=== PATIENT | male | born 1965 | race Caucasian/White ===

== ENCOUNTER 2021-03-25 08:50 | Emergency (ER) | payer BC ==
[~2021-03-25] VITALS: Ht 182 cm; Wt 99.7 kg
[2021-03-25 09:13] LABS: BILIRUBIN,URINE NEGATIVE (NEGATIVE); CLARITY,URINE CLEAR; COLOR,URINE YELLOW; GLUCOSE, URINE (UA) NEGATIVE (NEGATIVE); KETONES,URINE TRACE (NEGATIVE); LEUKOCYTE ESTERASE ,URINE NEGATIVE (NEGATIVE); NITRITE,URINE NEGATIVE (NEGATIVE); PH,URINE 5.5 (5-9); PROTEIN,URINE 1+ (NEGATIVE)
--- NOTE | 2021-03-25 09:13 | ED Neurological Problem ---
General Chief Complaint: Neurological Problems Stated Complaint: SEIZURE Source: patient, EMS Exam Limitations: no limitations History of Present Illness Date Seen by Provider: Mar 25, 2021 Time Seen by Provider: 08:47 Initial Comments Here with report of seizure activity. Apparently he was staying at the hotel. Significant other reported to EMS that he woke up and had a blank stare and then laid back and had tonic-clonic seizure for about 5 minutes. She called the hotel front desk clerk who called EMS. On EMS arrival, patient was confused and noted to have blood in his mouth and a little bit on the pillow and seemed to be postictal. No report of previous seizure. No recent injury. He is here for family day event as his daughter goes to [employer]. He denies pain, nausea, vomiting or weakness. Admits to drinking alcohol but it has been several weeks. He denies tobacco or drugs. Denies any other significant medical problems. His mentation is improving with time per EMS and also on our evaluation. Timing/Duration: 1/2 hour Severity: moderate Associated Symptoms: confusion; No fever/chills, No nausea/vomiting; seizures; No slurred speech Allergies and Home Medications Allergies Coded Allergies: No Known Drug Allergies (Unverified , 03/25/21) Patient Home Medication List Home Medication List Reviewed: Yes Review of Systems Review of Systems Constitutional: see HPI; No chills, No fever Ears, Nose, Mouth, Throat: denies epistaxis; mouth pain (Bite to the left side of the tongue with bleeding controlled) Respiratory: No cough, No short of breath Cardiovascular: No chest pain, No edema Gastrointestinal: No abdominal pain, No nausea, No vomiting Genitourinary: no symptoms reported, other (Incontinence of urine noted) Musculoskeletal: No back pain, No joint pain, No muscle pain Skin: No lesions All Other Systems Reviewed Negative Unless Noted: Yes Past Vvmfhkv-Atwuum-Ujgcuo Hx Patient Social History Tobacco Use?: No Substance use?: No Alcohol Use?: No Pt feels they are or have been: No Immunizations Up To Date First/Initial COVID19 Vaccinat: 2020 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 oz. kg; BMI Method: General Appearance: WD/WN, no apparent distress HEENT: PERRL/EOMI, TMs normal, other (Small abrasion/bite bin to left side of the tongue without active bleeding.) Neck: full range of motion, supple Respiratory: lungs clear, normal breath sounds, no respiratory distress, no accessory muscle use Cardiovascular: regular rate, rhythm, no murmur Gastrointestinal: non tender, soft Back: normal inspection, no CVA tenderness, no vertebral tenderness Extremities: non-tender, normal inspection Neurologic/Psychiatric: alert, normal mood/affect, other (Occasionally confused answers but improving with time) Crainal Nerves: normal hearing, normal speech, PERRL Motor/Sensory: no motor deficit, no sensory deficit, no pronator drift Skin: normal color, warm/dry Progress/Results/Core Measures Results/Orders Lab Results Laboratory Tests Test 03/25/21 08:50 03/25/21 09:01 03/25/21 10:12 Range/Units White Blood Count 14.0 H 4.3-11.0 10^3/uL Red Blood Count 4.67 4.30-5.52 10^6/uL Hemoglobin 14.5 13.3-17.7 g/dL Hematocrit 44 40-54 % Mean Corpuscular Volume 95 80-99 fL Mean Corpuscular Hemoglobin 31 25-34 pg Mean Corpuscular Hemoglobin Concent 33 32-36 g/dL Red Cell Distribution Width 12.8 10.0-14.5 % Platelet Count 104 L 130-400 10^3/uL Mean Platelet Volume 10.9 9.0-12.2 fL Immature Granulocyte % (Auto) 2 % Neutrophils (%) (Auto) 85 H 42-75 % Lymphocytes (%) (Auto) 6 L 12-44 % Monocytes (%) (Auto) 6 0-12 % Eosinophils (%) (Auto) 1 0-10 % Basophils (%) (Auto) 0 0-10 % Neutrophils # (Auto) 11.9 H 1.8-7.8 10^3/uL Lymphocytes # (Auto) 0.8 L 1.0-4.0 10^3/uL Monocytes # (Auto) 0.8 0.0-1.0 10^3/uL Eosinophils # (Auto) 0.2 0.0-0.3 10^3/uL Basophils # (Auto) 0.1 0.0-0.1 10^3/uL Immature Granulocyte # (Auto) 0.3 H 0.0-0.1 10^3/uL Neutrophils % (Manual) 80 % Lymphocytes % (Manual) 7 % Monocytes % (Manual) 4 % Eosinophils % (Manual) 4 % Basophils % (Manual) 0 % Band Neutrophils 5 % Percent Immature Platelet Fraction 4.4 0.0-7.6 % Blood Morphology Comment NORMAL Sodium Level 135 135-145 MMOL/L Potassium Level 4.0 3.6-5.0 MMOL/L Chloride Level 104 98-107 MMOL/L Carbon Dioxide Level 14 L 21-32 MMOL/L Anion Gap 17 H 5-14 MMOL/L Blood Urea Nitrogen 8 7-18 MG/DL Creatinine 0.79 0.60-1.30 MG/DL Estimat Glomerular Filtration Rate 103 BUN/Creatinine Ratio 10 Glucose Level 195 H 70-105 MG/DL Calcium Level 8.8 8.5-10.1 MG/DL Corrected Calcium 9.0 8.5-10.1 MG/DL Magnesium Level 2.0 1.6-2.4 MG/DL Total Bilirubin 2.9 H 0.1-1.0 MG/DL Aspartate Amino Transf (AST/SGOT) 71 H 5-34 U/L Alanine Aminotransferase (ALT/SGPT) 31 0-55 U/L Alkaline Phosphatase 127 40-136 U/L Total Protein 7.5 6.4-8.2 GM/DL Albumin 3.8 3.2-4.5 GM/DL Free Thyroxine 1.03 0.70-1.48 NG/DL TSH [place] Testing 6.46 H 0.35-4.94 UIU/ML Serum Alcohol < 10 <10 MG/DL Urine Color YELLOW Urine Clarity CLEAR Urine pH 5.5 5-9 Urine Specific [place] >=1.030 1.016-1.022 Urine Protein 1+ H NEGATIVE Urine Glucose (UA) NEGATIVE NEGATIVE Urine Ketones TRACE H NEGATIVE Urine Nitrite NEGATIVE NEGATIVE Urine Bilirubin NEGATIVE NEGATIVE Urine Urobilinogen 0.2 < = 1.0 MG/DL Urine Leukocyte Esterase NEGATIVE NEGATIVE Urine RBC (Auto) 1+ H NEGATIVE Urine RBC RARE /HPF Urine WBC NONE /HPF Urine Squamous Epithelial Cells RARE /HPF Urine Crystals NONE /LPF Urine Bacteria NEGATIVE /HPF Urine Casts NONE /LPF Urine Mucus NEGATIVE /LPF Urine Culture Indicated NO Urine Opiates Screen NEGATIVE NEGATIVE Urine Oxycodone Screen NEGATIVE NEGATIVE Urine Methadone Screen NEGATIVE NEGATIVE Urine Propoxyphene Screen NEGATIVE NEGATIVE Urine Barbiturates Screen NEGATIVE NEGATIVE Ur Tricyclic Antidepressants Screen NEGATIVE NEGATIVE Urine Phencyclidine Screen NEGATIVE NEGATIVE Urine Amphetamines Screen NEGATIVE NEGATIVE Urine Methamphetamines Screen NEGATIVE NEGATIVE Urine Benzodiazepines Screen NEGATIVE NEGATIVE Urine Cocaine Screen NEGATIVE NEGATIVE Urine Cannabinoids Screen NEGATIVE NEGATIVE SARS-CoV-2 RNA (RT-PCR) Not Detected Not Detecte My Orders Orders - LUCY NO MD Ct Head Wo (03/25/21 09:04) Cbc With Automated Diff (03/25/21 09:04) Comprehensive Metabolic Panel (03/25/21 09:04) Magnesium (03/25/21 09:04) Thyroid Analyzer (03/25/21 09:04) Ua Culture If Indicated (03/25/21 09:04) Manual Differential (03/25/21 08:50) Free T4 (Free Thyroxine) (03/25/21 08:50) Lorazepam Injection (Ativan Injection) (03/25/21 09:51) Levetiracetam Injection (Keppra Injectio (03/25/21 09:53) Ns (Ivpb) (Sodium Chloride 0.9% Ivpb Bag (03/25/21 09:54) Levetiracetam Injection (Keppra Injectio (03/25/21 10:00) Ns (Ivpb) (Sodium Chloride 0.9% Ivpb Bag (03/25/21 09:56) Covid 19 Inhouse Test (03/25/21 10:10) Alcohol (03/25/21 10:10) Drug Screen Stat (Urine) (03/25/21 10:10) Levetiracetam Injection (Keppra Injectio (03/25/21 11:04) Lactated Ringers (Lr 1000 Ml Iv Solution (03/25/21 12:00) Lactated Ringers (Lr 1000 Ml Iv Solution (03/25/21 11:58) Medications Given in ED Current Medications Medications Dose Ordered Sig/Cara Route Start Time Stop Time Status Last Admin Dose Admin Lactated Ringer's 1,000 ml @ 0 mls/hr Q0M ONCE IV 03/25/21 12:00 03/25/21 12:01 DC 03/25/21 12:06 0 MLS/HR Levetiracetam 500 mg/Sodium Chloride 105 ml @ 210 mls/hr ONCE ONCE IV 03/25/21 10:00 03/25/21 10:29 DC 03/25/21 09:58 210 MLS/HR Lorazepam 2 mg STK-MED ONCE .ROUTE 03/25/21 09:51 03/25/21 09:53 DC 03/25/21 09:59 1 MG Vital Signs/I&O 03/25/21 09:03 Temp 36.4 Pulse 105 Resp 18 B/P (MAP) 159/87 (111) Pulse Ox 95 Progress Progress Note : Progress Note Seen and evaluated. IV by EMS. Labs and CT head ordered. We will continue normal saline initiated by EMS until complete. Monitor patient. 1000: Patient had seizure in the emergency department that initially appeared brief but then persisted. Ativan 1 mg IV given as well as Keppra 500 mg IV initiated. Given the repeat seizures in the short period of time, patient may need to be admitted to a center with neurology capability. Patient and family are from [place]. is here now. I did discuss with her more at length regarding his alcoholism. She states that he is an alcoholic and has not drank since October. She does not believe that he is closet drinking and states that he has been actually doing very well. No recent injuries or other drugs noted or reported. We did discuss transfer and patient will need to go to the Center with neurology as discussed above. She would prefer [facility] in [facility] as that is where she and he typically go. She is calling family to [facility] that that is their preference and we will initiate proceedings for transfer. Monitor patient. Seizure precautions have been initiated. 1120: I did speak with the transfer doctor and plant utility person neurologist Dr. Neri. We did review the case. The neurologist is concerned that this is alcohol withdrawal seizures given patient's history and slightly elevated liver enzymes. This may be the case. Patient denies this but given the new onset seizures and history of alcoholism, this may certainly be the case. CT of the head is negative. Labs reviewed. TSH is slightly elevated but T4 is normal. Otherwise labs looked typical for post seizure. Neurologist recommended increasing loading dose of Keppra to 1000 mg so we have added another 500 mg IV dose. He did get a Joaquin catheter. They are recommending monitoring him and seeing if he improves over time. If he is doing better then consideration for outpatient evaluation and continuing Keppra 500 mg p.o. twice daily pending neurology consult. I did discuss all of this with the patient and family. There is a significant lack of beds in the region. We will try another facility if needed. The [facility] system as well [facility]'s system do not currently have beds. Monitor patient. 1355: I discussed the case with the stroke neurologist on-call at [facility] Dr. Hsu. We discussed current findings. This does not appear to be stroke related but I did want to discuss that as a potential in the differential. Unlikely given presentation. He has no focal neurological deficits. We did walk the patient and his balance is steady. Does complain of muscle pain in the legs and upper back as well as a mild headache. He is drinking without difficulty. Overall this appears to be seizure of unknown origin, less likely alcohol withdrawal seizure in my opinion as the patient and family denying alcohol since October. May be related to long-term sequela of alcohol abuse though. Given that seizure is unknown, we will go ahead and initiate Keppra twice daily and have him follow-up with his primary care doctor tomorrow as well as neurology in the [place] area. This was discussed at length with patient and family who agree. He has not had repeat seizures since initiation of the Keppra earlier in the ED course. feels confident that she can work through the care needs at home and is comforted since he is able to walk on his own accord. Discharged home with return precautions. Patient and family verbalized understanding instructions and agreement with plan Diagnostic Imaging Diagonstic Imaging: CT Plain Films/CT/US/NM/MRI: head Comments [facility]. [place], [place] NAME: TEDDY LANDEROS MED REC#: [id number] PT STATUS: REG ER : 1965 PHYSICIAN: LUCY NO MD ADMIT DATE: 03/25/21/ER Draft Date of Exam:03/25/21 CT HEAD WO EXAMINATION: CT head without contrast. TECHNIQUE: Multiple contiguous axial images were obtained through the brain without the use of intravenous contrast. All CT scans use one or more of the following dose optimizing techniques: automated exposure control, MA and/or KvP adjustment based on patient size and exam type or iterative reconstruction. HISTORY: Seizure COMPARISON: None available. FINDINGS: The wiggins-white matter differentiation is normal. No mass effect or midline shift. The ventricles are normal in size and configuration. Basilar cisterns are patent. There are no intra- or extra-axial fluid collections. There is no intracranial hemorrhage. The orbits are normal. Paranasal sinuses are normal. Mastoid air cells are clear. No soft tissue abnormality is seen. No osseus lesions or fractures are seen. IMPRESSION: 1. No acute intracranial abnormality. Dictated on workstation # [id number] Dict: 03/25/21928 Trans: 03/25/2142 [facility] [id number] Interpreted by: JACQUES EASON MD Electronically signed by: Departure Impression Primary Impression: New onset seizure Disposition: 01 HOME, SELF-CARE Condition: Stable Departure-Patient Inst. Decision time for Depature: 13:57 Referrals: NO,LOCAL PHYSICIAN (PCP/Family) Primary Care Physician Patient Instructions: Seizures, Adult (DC) Add. Discharge Instructions: All discharge instructions reviewed with patient and/or family. Voiced understanding. Do not operate heavy machinery. Do not put yourself in situation that may be dangerous if you were to have a seizure including no driving, no swimming or soaking in a bathtub by yourself, and no climbing to heights. Follow-up with your doctor tomorrow. Call office for appointment. personal support worker prescription on the way out of town and start that tonight. Drink plenty of fluids and eat a normal diet. Return for seizures, weakness, breathing problems or other concerns as needed. Scripts Levetiracetam (Levetiracetam) 500 Mg Tablet 500 MG PO BID for 30 Days, #60 TAB 0 Refills Prov: LUCY NO MD 03/25/21 LUCY NO MD Mar 25, 2021 09:13
[2021-03-25 09:17] LABS: ALBUMIN 3.8 GM/DL (3.2-4.5); HEMOGLOBIN 14.5 g/dL (13.3-17.7); MEAN CORPUSCULAR VOLUME 95 fL (80-99)
[2021-03-25 09:19] LABS: BASOPHILS # (AUTO) 0.1 10^3/uL (0.0-0.1); BASOPHILS % (AUTO) 0 % (0-10); CALCIUM 8.8 MG/DL (8.5-10.1); EOSINOPHILS # (AUTO) 0.2 10^3/uL (0.0-0.3); EOSINOPHILS % (AUTO) 1 % (0-10); HEMATOCRIT 44 % (40-54); LYMPHOCYTES # (AUTO) 0.8 10^3/uL (1.0-4.0); LYMPHOCYTES % (AUTO) 6 % (12-44); MEAN CORPUSCULAR HEMOGLOBIN 31 pg (25-34); MEAN CORPUSCULAR HGB CONC 33 g/dL (32-36); MEAN PLATELET VOLUME 10.9 fL (9.0-12.2); MONOCYTES # (AUTO) 0.8 10^3/uL (0.0-1.0); MONOCYTES % (AUTO) 6 % (0-12); NEUTROPHILS # (AUTO) 11.9 10^3/uL (1.8-7.8); NEUTROPHILS % (AUTO) 85 % (42-75); PLATELET COUNT 104 10^3/uL (130-400)
[2021-03-25 09:20] LABS: TOTAL PROTEIN 7.5 GM/DL (6.4-8.2)
[2021-03-25 09:22] LABS: BILIRUBIN,TOTAL 2.9 MG/DL (0.1-1.0)
[2021-03-25 09:23] LABS: CREATININE SERUM 0.79 MG/DL (0.60-1.30)
[2021-03-25 09:24] LABS: BACTERIA,URINE NEGATIVE /HPF; RBC,URINE RARE /HPF; SQUAMOUS EPITHELIAL CELL,UR RARE /HPF
--- NOTE | 2021-03-25 09:43 | Diagnostic Imaging Report ---
EXAMINATION: CT head without contrast. TECHNIQUE: Multiple contiguous axial images were obtained through the brain without the use of intravenous contrast. All CT scans use one or more of the following dose optimizing techniques: automated exposure control, MA and/or KvP adjustment based on patient size and exam type or iterative reconstruction. HISTORY: Seizure COMPARISON: None available. FINDINGS: The wiggins-white matter differentiation is normal. No mass effect or midline shift. The ventricles are normal in size and configuration. Basilar cisterns are patent. There are no intra- or extra-axial fluid collections. There is no intracranial hemorrhage. The orbits are normal. Paranasal sinuses are normal. Mastoid air cells are clear. No soft tissue abnormality is seen. No osseus lesions or fractures are seen. IMPRESSION: 1. No acute intracranial abnormality. Dictated by: Dictated on workstation # [id number]
[2021-03-25 09:45] LABS: BAND NEUTROPHILS 5 %; BASOPHILS % (MANUAL) 0 %; EOSINOPHILS % (MANUAL) 4 %; LYMPHOCYTES % (MANUAL) 7 %; MONOCYTES % (MANUAL) 4 %; NEUTROPHILS % (MANUAL) 80 %; RBC MORPH NORMAL
[2021-03-25 09:46] LABS: TSH (THYROID ANALYZER) 6.46 UIU/ML (0.35-4.94)
[2021-03-25] MEDS ORDERED: LORazepam INJ 2 MG/ML (ATIVAN) VIAL ONE (09:51)
[2021-03-25] MEDS ORDERED: NS (IVPB) 0 ML ONE (09:54)
[2021-03-25] MEDS ORDERED: NS (IVPB) 100 ML ONE (09:56)
[2021-03-25 10:46] LABS: AMPHETAMINE SCREEN, URINE NEGATIVE (NEGATIVE); BARBITURATE SCREEN URINE NEGATIVE (NEGATIVE); BENZODIAZEPINES SCREEN URINE NEGATIVE (NEGATIVE); CANNABINOID SCREEN, URINE NEGATIVE (NEGATIVE); COCAINE SCREEN URINE NEGATIVE (NEGATIVE); METHADONE STAT NEGATIVE (NEGATIVE); METHAMPHETAMINE SCREEN URINE S NEGATIVE (NEGATIVE); OPIATE SCREEN URINE NEGATIVE (NEGATIVE); OXYCODONE STAT NEGATIVE (NEGATIVE); PROPOXYPHENE STAT NEGATIVE (NEGATIVE); TRICYCLIC ANTIDEPRESSANTS SCRE NEGATIVE (NEGATIVE)
[2021-03-25 10:51] LABS: FREE T4 (FREE THYROXINE) 1.03 NG/DL (0.70-1.48)
[2021-03-25] MEDS ORDERED: LACTATED RINGERS 1,000 ML IV ONE ×2 (11:58→12:00)
[2021-03-25] MEDS ORDERED: LEVE500T6 PO (14:06)
[2021-03-25 14:15] VITALS: BP 168/89
== END 2021-03-25 14:15 | disposition home or self-care (01) ==
LOC: EDBD 08:51 → ER 08:51
DX: R56.9 Unspecified convulsions (principal); Z20.822 Contact with and (suspected) exposure to COVID-19
CPT/HCPCS: 51702; 70450; 80053; 80306; 81000; 83735; 84439; 84443; 85007; 85027; 87636; 99284; G0480; 36415; 80320